=== PATIENT | female | born 1945 | race Caucasian/White ===

== ENCOUNTER 2018-02-15 15:53 | Emergency (ER) | payer OTHER ==
[~2018-02-15] VITALS: Ht 170.2 cm; Wt 54.4 kg
--- NOTE | ~2018-02-15 | EKG ---
[address] [address] ELECTROCARDIOGRAM REPORT Name: CALVIN GIFFORD Room #: DEP [facility]#: [id number] Admission: 02/15/18 Attend Phys: Discharge: 02/15/18 Date of : 45 Report #: [id number] THIS REPORT FOR: //name// [facility] ED Test Date: 2018-02-15 Test Time: 16:03:24 Pat Name: CALVIN GIFFORD Department: Room: Gender: F Electrical Design Technician: suri : 1945 Requested By: Jose Polanco Order Number: [id number] MD: Branden Oh Measurements Intervals [place] Rate: 75 P: 70 SC: 134 QRS: 75 QRSD: 92 T: 41 QT: 400 QTc: 447 Interpretive Statements Sinus rhythm Abnormal T, consider ischemia, anterior leads No previous ECG available for comparison Electronically Signed On 02-16-2018 17:40:45 CDT by Branden Oh [email or web address] <ELECTRONICALLY SIGNED> By: Branden Oh MD 02/16/18 1740 1603 1603 Branden Oh MD /ERICA
[2018-02-15] MEDS ORDERED: ARICEPT 5 MG TAB5 MG PO (16:10)
[2018-02-15] MEDS ORDERED: PEPCID20 MG PO (16:10)
[2018-02-15] MEDS ORDERED: ZINC50 MG PO (16:11)
[2018-02-15] MEDS ORDERED: DEPAKOTE 250MG250 M1 PO (16:11)
[2018-02-15] MEDS ORDERED: XANAX 0.5 MG0.5 MG PO (16:11)
[2018-02-15] MEDS ORDERED: CYCLOBENZAPRINE5 MG PO (16:12)
[2018-02-15] MEDS ORDERED: PLAVIX 75 MG TA75 M1 PO (16:12)
[2018-02-15] MEDS ORDERED: LOPRESSOR100 M1 PO (16:12)
[2018-02-15 16:14] LABS: HEMATOCRIT 35.4 % (37.0-47.0); HEMOGLOBIN 12.2 gm/dL (12.0-15.0); MCH 30.3 pg (26.0-34.0); MCHC 34.4 g/dL (28.0-37.0); MCV 88.3 fL (80.0-100.0); PLATELET COUNT 200 thou/uL (150-400); RBC 4.01 mil/uL (4.20-5.00); WBC 7.6 thou/uL (4.0-11.0)
[2018-02-15] MEDS ORDERED: RESTORIL15 MG PO (16:14)
[2018-02-15] MEDS ORDERED: ZOCOR20 MG PO (16:14)
[2018-02-15] MEDS ORDERED: TYLENOL325 MG PO (16:15)
[2018-02-15] MEDS ORDERED: MELATONIN5 M1 PO (16:16)
[2018-02-15] MEDS ORDERED: MUSCLE RUB CRE113 G1 TOP (16:16)
[2018-02-15 16:25] LABS: ANION GAP 2 mmol/L (7-16); BUN 7 mg/dL (7-18); CALCIUM 9.2 mg/dL (8.5-10.1); CHLORIDE 105 mmol/L (98-107); CO2 32 mmol/L (21-32); CREATININE 0.9 mg/dL (0.6-1.0); GLUCOSE 103 mg/dL (74-106); POTASSIUM 3.5 mmol/L (3.5-5.1); SODIUM 139 mmol/L (136-145)
[2018-02-15 16:33] LABS: ALBUMIN 3.1 g/dL (3.4-5.0); APTT 24.1 Seconds (24.5-32.8); MAGNESIUM 1.8 mg/dL (1.8-2.4); PROTIME 9.7 Seconds (9.3-11.4); SGOT 16 U/L (15-37); SGPT 13 U/L (30-65); TOTAL BILIRUBIN 0.2 mg/dL (<0.1-1.0); TOTAL PROTEIN 6.7 g/dL (6.4-8.2); TROPONIN-I <0.06 ng/mL (<0.06)
[2018-02-15 16:38] LABS: ABSOLUTE NEUTROPHILS 2.7 thou/uL (1.4-8.2)
[2018-02-15] MEDS ORDERED: ACETAMINOPHEN-1 EAC1 PO (16:58)
[2018-02-15] MEDS ORDERED: PREDNISONE 20 M20 MG PO (16:58)
[2018-02-15 17:20] VITALS: BP 119/69
== END 2018-02-15 17:23 | disposition home or self-care (01) ==
LOC: ER 15:53
PROVIDERS: Emergency Medicine
DX: R07.89 Other chest pain (principal); G89.18 Other acute postprocedural pain; Z86.73 Personal history of transient ischemic attack (TIA), and cerebral infarction without residual deficits; Z90.49 Acquired absence of other specified parts of digestive tract

== ENCOUNTER 2018-07-16 14:50 | Emergency (ER) | payer OTHER ==
[~2018-07-16] VITALS: Ht 170.2 cm; Wt 59.9 kg
[~2018-07-16 14:50] MED LIST: ACETAMINOPHEN-1 EAC1 PO; ARICEPT 5 MG TAB5 MG PO; CYCLOBENZAPRINE5 MG PO; DEPAKOTE 250MG250 M1 PO; LOPRESSOR100 M1 PO; MELATONIN5 M1 PO; MUSCLE RUB CRE113 G1 TOP; PEPCID20 MG PO; PLAVIX 75 MG TA75 M1 PO; PREDNISONE 20 M20 MG PO; RESTORIL15 MG PO; TYLENOL325 MG PO; XANAX 0.5 MG0.5 MG PO; ZINC50 MG PO; ZOCOR20 MG PO
[2018-07-16 15:40] LABS: HEMOGLOBIN 12.5 gm/dL (12.0-15.0); MCH 28.8 pg (26.0-34.0); MCHC 32.8 g/dL (28.0-37.0); MCV 87.9 fL (80.0-100.0); PLATELET COUNT 262 thou/uL (150-400); RBC 4.33 mil/uL (4.20-5.00); WBC 8.5 thou/uL (4.0-11.0)
[2018-07-16 15:41] LABS: URINE BILIRUBIN NEGATIVE (Negative); URINE BLOOD 2+ (Negative); URINE CLARITY CLEAR; URINE COLOR YELLOW; URINE GLUCOSE-RANDOM* NEGATIVE (Negative); URINE KETONES NEGATIVE (Negative); URINE PROTEIN (DIPSTICK) NEGATIVE (Negative); URINE SPECIFIC GRAVITY >= 1.030 (1.005-1.035); URINE UROBILINOGEN 0.2 E.U./dl (0.2-1.0)
[2018-07-16 15:42] LABS: URINE LEUKOCYTES-REFLEX 1+ (Negative); URINE NITRITE-REFLEX POSITIVE (Negative)
[2018-07-16 15:47] LABS: CALCIUM 9.3 mg/dL (8.5-10.1); CREATININE 0.9 mg/dL (0.6-1.0); POTASSIUM 3.7 mmol/L (3.5-5.1)
[2018-07-16 15:52] LABS: BACTERIA-REFLEX >30 Many /HPF (None Seen); CASTS None Seen /LPF (None Seen); CRYSTALS None Seen /LPF (None Seen); SQUAMOUS 0-3 Few /LPF (0-3); URINE RBC 0-2 Rare /HPF (0-2); URINE WBC-REFLEX >25 Many /HPF (0-5); WBC CLUMPS Moderate (None Seen)
[2018-07-16 15:54] LABS: ALBUMIN 3.1 g/dL (3.4-5.0); TOTAL BILIRUBIN 0.3 mg/dL (<0.1-1.0); TOTAL PROTEIN 7.4 g/dL (6.4-8.2)
[2018-07-16 16:03] LABS: ABSOLUTE NEUTROPHILS 4.4 thou/uL (1.4-8.2); PLATELET ESTIMATE NORMAL
[2018-07-16] MEDS ORDERED: CIPRO500 MG PO (16:09)
[2018-07-16] MEDS ORDERED: PROBIOTIC1 EAC1 PO (16:10)
[2018-07-16 19:45] VITALS: BP 112/66
== END 2018-07-16 19:45 | disposition home or self-care (01) ==
LOC: ER 14:50
PROVIDERS: Nurse Practitioner Family
DX: R19.7 Diarrhea, unspecified (principal); N39.0 Urinary tract infection, site not specified; I10 Essential (primary) hypertension; F03.90 Unspecified dementia, unspecified severity, without behavioral disturbance, psychotic disturbance, mood disturbance, and anxiety; K21.9 Gastro-esophageal reflux disease without esophagitis; F41.9 Anxiety disorder, unspecified